=== PATIENT | female | born 1960 | race Caucasian/White ===

== ENCOUNTER → 2021-12-18 12:57 | Outpatient (BNVA) | payer OTHER, SELFPAY | PROVIDERS: PCP Internal Medicine; Visit Provider Nurse Practitioner Family | DX: M47.816 Spondylosis without myelopathy or radiculopathy, lumbar region (principal); M51.36 Other intervertebral disc degeneration, lumbar region; M54.16 Radiculopathy, lumbar region; M79.7 Fibromyalgia; M62.838 Other muscle spasm; E11.69 Type 2 diabetes mellitus with other specified complication; E66.9 Obesity, unspecified; G89.4 Chronic pain syndrome | CPT/HCPCS: 99202 ==